=== PATIENT | male | born 1985 | race Caucasian/White ===

== ENCOUNTER → 2023-09-28 07:07 | Outpatient (REF) | payer BC, SELFPAY | LOC: HWRAD 07:07 | PROVIDERS: ATTENDING PHYSICIAN Physical Medicine & Rehabilitation Pain Medicine | DX: M54.12 Radiculopathy, cervical region (principal) | CPT/HCPCS: 72131 ==

== ENCOUNTER 2023-10-26 06:07 | Day surgery (SDC) | payer BC, SELFPAY ==
[2023-10-26] VITALS (9 sets, daily range): BP systolic 141–163; BP diastolic 82–115; BMI 30.1
[2023-10-26] MEDS: TYLENOL 1000 MG PO (06:31)
[2023-10-26] MEDS: NORMOSOL-R 1000 IV (06:42)
== END 2023-10-26 09:30 | disposition home or self-care (01) ==
LOC: SDS 06:07
PROVIDERS: ATTENDING PHYSICIAN Surgery
DX: S20.459A Superficial foreign body of unspecified back wall of thorax, initial encounter (principal); X58.XXXA Exposure to other specified factors, initial encounter; M54.9 Dorsalgia, unspecified; R73.03 Prediabetes
CPT/HCPCS: 10120